=== PATIENT | female | born 1950 | race Caucasian/White ===

== ENCOUNTER → 2019-08-30 | Outpatient (CLI) | payer MEDICARE | END | disposition home or self-care (01) | LOC: LAB SHORT 17:20 → LAB EV 17:20 | DX: R10.33 Periumbilical pain (principal) | CPT/HCPCS: 87077; 87086; 87186 ==

== ENCOUNTER → 2019-09-19 | Outpatient (CLI) | payer MEDICARE ==
[2019-09-19 11:41] LABS: Source, Urine Clean Catch
[2019-09-19 15:51] LABS: Bilirubin, Urine Neg (Neg); Blood, Urine 1+ (Neg); Glucose Qualitative, Urine Neg (Neg); Ketones, Urine Neg (Neg); Leukocyte Esterase, Urine 1+ (Neg); Nitrite, Urine Pos (Neg); Protein, Urine 1+ (Neg); Specific Gravity, Urine 1.015 (1.003-1.022); Urobilinogen, Urine NORM (Normal)
[2019-09-19 15:56] LABS: Appearance, Urine Hazy (Clear); Calcium Oxalate Crystals Few /hpf; Color, Urine Yellow (P-Yellow)
[2019-09-19 15:57] LABS: Bacteria Many /hpf; Squamous Epithelial Cells Rare /hpf (Few)
== END | disposition home or self-care (01) ==
LOC: LAB SHORT 08:50 → LAB 08:50
PROVIDERS: Obstetrics & Gynecology
DX: N39.0 Urinary tract infection, site not specified (principal)
CPT/HCPCS: 81001; 87077; 87086; 87186

== ENCOUNTER → 2020-01-21 | Outpatient (CLI) | payer MEDICARE | LOC: LAB SHORT 11:00 → LAB EV 11:00 | DX: R30.9 Painful micturition, unspecified (principal) | CPT/HCPCS: 87077; 87086; 87186 ==

== ENCOUNTER 2020-09-09 11:54 | Day surgery (SDC) | payer MEDICARE, OTHER ==
[~2020-09-09] VITALS: Ht 170.2 cm; Wt 76.1 kg
[~2020-09-09 11:54] MED LIST: ATOR20 PO; CALCIUM PO; CYAN500 PO; Estrace Vagin42.5 GM VAG; FISH OIL PO; FOLI1 PO; LEVOTHYROXINE100 MC1 PO; LOPE2C PO; LOSARTAN-HCTZ1 EACH PO; MAGNESIUM PO; METO25ER PO; METTREX2.5 INJ; MULVITA PO; SUMA25 PO; VITAMIN D310 MC4 PO
--- NOTE | 2020-09-09 12:45 | NUR ---
Ambulatory in Day Surgery Surgical site prepped with 2% Chlorhexidine cloth wipe. History, Chart, Medications and Allergies reviewed before start of procedure.Lungs clear T/O to Auscultation. Patient confirms NPO status and agrees with scheduled surgery. Patient reports completing Chlorhexadine shower X2 prior to admission to hospital. ALL BELONGINGS PLACED UNDER THE BED.
--- NOTE | 2020-09-09 13:09 | NUR ---
PT TOOK PO MEDS AND CLEANED NARES AND DID MOUTHWASH WITHOUT DIFFICULTY.
--- NOTE | 2020-09-09 17:06 | NUR ---
REPORT RECIEVED FROM CLEMENTE Smith RN IN PACU. PT TO TRANSFER TO ROOM 216,S/P L TKA
--- NOTE | 2020-09-09 19:55 | NUR ---
PT ARRIVED ARRIVED AT 1708 AT ROOM 216. PODO FOR L TKA WITH SPINAL ANESTHESIA. PT IS ABLE TO WIGGLE TOES AND MILD MOV'T ON BLE. CAP REFILL WNL. PEDAL PULSES ARE STRONG. LUNG SOUNDS ARE CLEAR. VSS. DENIES PAIN AT BEGINNING OF SHIFT. REPORTS PAIN AT 1830. PAIN MANAGED WITH TORADOL, TYLENOL AND LY. POLAR PACK IN PLACED WITH SCD AND ANTIEMBO SOCK ON BLE. ABX AND TXA ADMINISTERED. SHE HAS 18G IV ON R AC. L HIP WITH AQUACEL DRESSING CDI. PT TOLERATING REG DIET FOR DINNER, DENIE NAUSEA AND VOMITING. PT ORIENT IN ROOM. CALL LIGHT WITHIN REACH.
--- NOTE | 2020-09-09 22:43 | NUR ---
SHIFT SUMMARY POD0 FOR L TKA. PT AOX4. VSS. PT WAS ABLE TO AMBULATE TO THE BATHROOM WITH 1 PERSON ASSIST. PT REPORTS PAIN, PAIN MANAGED WITH TORADOL, TYLENOL AND LY. TOLERATING REG DIET DENIES N/V. L KNEE WITH AQUACEL DRESSING REMAIN CDI. LLE IS WB NASIMA. POLAR PACK IN PLACED. VOIDING ADEQUATELY. CALL LIGHT WITHIN REACH.
[2020-09-10 05:55] LABS: BASOPHILS ABSOLUTE AUTO 0.01 K/mm3 (0.00-0.23); BASOPHILS PERCENT AUTO 0 % (0-2); EOSINOPHILS PERCENT AUTO 0 % (0-6); Hematocrit 35.3 % (33.0-51.0); IMMATURE GRAN ABSOLUTE AUTO 0.07 K/mm3 (0.00-0.10); IMMATURE GRAN PERCENT AUTO 1 % (0-1); LYMPHOCYTES ABSOLUTE AUTO 0.64 K/mm3 (0.84-5.20); LYMPHOCYTES PERCENT AUTO 5 % (21-46); MONOCYTES ABSOLUTE AUTO 0.47 K/mm3 (0.16-1.47); MONOCYTES PERCENT AUTO 4 % (4-13); Mean Corpuscular HGB 33.2 pg (26.0-34.0); Mean Corpuscular Volume 98 fL (80-100); NEUTROPHILS ABSOLUTE AUTO 10.77 K/mm3 (1.96-9.15); NEUTROPHILS PERCENT AUTO 90 % (41-73); Platelet Count 176 K/mm3 (150-400); RDW Coefficient Variation 13.3 % (11.7-14.2); RDW Standard Deviation 47.6 fL (35.1-46.3); Red Blood Cell Count 3.61 M/mm3 (3.80-5.20); White Blood Cell Count 11.96 K/mm3 (4.00-11.30)
[2020-09-10 06:26] LABS: Anion Gap 8 mmol/L (6-16); Blood Urea Nitrogen 18 mg/dL (8-24); CO2, Blood 27 mmol/L (21-32); Calcium, Blood 8.6 mg/dL (8.5-10.1); Chloride, Blood 104 mmol/L (98-108); Creatinine, Blood 0.86 mg/dL (0.40-1.00); Glomerular Filtration Rate >60 (60-); Glucose, Blood 135 mg/dL (70-99); Potassium, Blood 3.6 mmol/L (3.5-5.5); Sodium, Blood 139 mmol/L (136-145)
--- NOTE | 2020-09-10 06:45 | NUR ---
SHIFT SUMMARY: JADEN IS A&OX4. VSS, NO ACUTE EVENTS OVERNIGHT. SHE REPORTS DIFFICULTY WITH PAIN CONTROL THIS SHIFT, THE BEST PAIN RATING HAS BEEN 4/10 WITH THE GOAL OF 2/10. SHE HAS BEEN MEDICATED WITH APAP, TORADOL, OXYCODONE AND DILAUDID. PT ENCOURAGED TO AMBULATE. SHE IS A ONE PERSON ASSIST WITH THE FWW AND GAIT BELT TO THE BATHROOM, NO DIFFICULTIES VOIDING. DILSHAD HOSE, PAS AND POLAR PACK IN PLACE. SHE IS TOLERATING PO INTAKE WELL. AQUACELL TO LEFT KNEE C/D&I. SHE IS LYING IN BED WITH HER CALL LIGHT IN REACH. WILL REPORT TO DAY SHIFT RN.
[2020-09-10] MEDS ORDERED: OXAYDO5 M1 PO (11:08)
[2020-09-10] MEDS ORDERED: XARELTO10 MG PO (11:09)
--- NOTE | 2020-09-10 17:47 | NUR ---
SUMMARY PT PASSED THERAPY TODAY BUT PAIN HAS BEEN AN ISSUE. OBTAINED ORDER THIS AFTERNOON FOR PO DILAUDID; ADMINISTERED. PT NOW REPORTS PAIN AT 5/10. MEDICATED PER ORDERS T/O SHIFT TO TRY AND KEEP AT TOLERABLE LEVEL. PT ABLE TO TOLERATE AT 4-5/10. POLAR PACK HAS BEEN IN PLACE AND PT HAS BEEN SITTING IN RECLINER W/LEGS ELEVATED. CALL LIGHT IN REACH.
--- NOTE | 2020-09-11 05:47 | NUR ---
BOWEL CARE ASSISTED TO COMMODE D/T NEED FOR BM, UNABLE TO HAVE MOVEMENT. C/O N/V, 200ML BROWN FLUID WITH MASTICATED PARTICULATES AND AM MED WITH PRN PAIN MED NOTED IN BAG WHEN EMPTIED INTO COMMODE. 4MG ZOFRAN GIVEN IVP PER MD ORDERS. N/V RESOLVED. DULCOLAX SUPP GIVEN MT PER MD ORDERES. CURRENTLY WAITING ON RESULTS. SAFETY MEASURES IN PLACE. WILL CONTINUE TO MONITOR.
--- NOTE | 2020-09-11 06:06 | NUR ---
SHIFT SUMMARY SITTING ON THE SIDE OF THE BED WITH EYES OPEN, HAS RESTED WELL THROUGHOUT SHIFT. POD #2, AAO X4, ABLE TO FOLLOW DIRECTIONS. RESPIRATIONS EVEN AND UNLABORED ON ROOM AIR. LUNG SOUNDS CLEAR BILATERALLY. ABDOMEN SOFT AND NONDISTENDED. BOWEL SOUNDS NOTED IN ALL QUADS. LEFT KNEE WITH AQUACEL IN PLACE, AND SHADOWING NOTED, STATES IT HAPPENED AFTER WORKING WITH PT. PAIN BETTER MANAGED THIS SHIFT AFTER PLACING ICE BEHIND THE KNEE. SCD'S NOTED TO BLE. CONTINUE TO WAIT FOR RESULTS FROM DULCO;AX SUPPOSITORY. WILL REMEDICATE FOR VOMITED PILLS WHEN COMFORTABLE. SAFETY MEASURES IN PLACE. WILL CONTINUE TO MONITOR AND GIVE HAND OFF TO ONCOMING SHIFT USING SBAR DURING BEDSIDE REPORT.
--- NOTE | 2020-09-11 07:00 | NUR ---
REMEDICATED LYING IN SEMI FOWLERS WITH EYES OPEN. STATES SHE HAS NOT HAD RESILTS YET. REMEDICATED FOR PAIN WITH OXYCODONE AND GIVEN REPLACEMENT DOSE OF SYNTHROID. ICE REPLACED IN BUCKET AND BEHIND KNEE. DENEIS FURTHER NEEDS OR WANTS AT THIS TIME. SAFETY MEASURES IN PLACE. WILL CONTINUE TO MONITOR.
--- NOTE | 2020-09-11 10:05 | NUR ---
DISCHARGING PT'S PAIN IMPROVED/TOLERABLE TODAY. CLEARED BY THERAPY. PT EAGER TO GO HOME. SPOKE TO NICHELLE TYLER; OKAY TO DC. CHANGED DRESSING TO SURGICAL SITE DUE TO SANGUINEOUS DRAINAGE. PROVIDED AQUACEL DRESSINGS FOR PT TO TAKE HOME. DC'D IV, CATHETER INTACT. REVIEWED DC INSTRUCTIONS W/PT; VERBALIZED UNDERSTANDING. PT AWAITING RIDE.
--- NOTE | 2020-09-11 10:19 | NUR ---
PT LEFT UNIT IN WC HAD POSSESSIONS, DC INSTRUCTIONS, AQUACEL, AND POLAR PACK IN HAND TO RIDE AWAITING OUTSIDE.
== END 2020-09-11 10:19 | disposition home or self-care (01) ==
LOC: ORSCMMR 11:54 → ORD 11:54 → ORSCMMR 11:56 → ORD 13:30 → ORSCMMR 17:44 → SURS 17:44 → ORD 09-11 07:30 → ORSCMMR 09-11 10:19 → SURS 09-11 10:19
PROVIDERS: Orthopaedic Surgery
PROC: 8E0Y0CZ Robotic Assisted Procedure of Lower Extremity, Open Approach (ICD-10-PCS; principal; 2020-09-09 13:30)
PROC: 0SRD0JA Replacement of Left Knee Joint with Synthetic Substitute, Uncemented, Open Approach (ICD-10-PCS; principal; 2020-09-09 13:30)
DX: M17.12 Unilateral primary osteoarthritis, left knee (principal); I10 Essential (primary) hypertension; Z86.718 Personal history of other venous thrombosis and embolism; E78.5 Hyperlipidemia, unspecified; E03.9 Hypothyroidism, unspecified; Z79.899 Other long term (current) drug therapy
CPT/HCPCS: 27447; S2900; 36415; 73560-LT; 80048; 85025; 88300; 97110; 97116; 97161; 97530; A9270; C1776; J0171; J0690; J0735; J1100; J1170; J1885; J2250; J2370; J2405; J2704; J2765; J2795; J3010; J7120

== ENCOUNTER → 2020-11-06 | Outpatient (CLI) | payer MEDICARE, OTHER ==
[~2020-11-06] MED LIST changes: +OXAYDO5 M1 PO; +XARELTO10 MG PO
== END | disposition home or self-care (01) ==
LOC: LAB SHORT 12:01
DX: N39.0 Urinary tract infection, site not specified (principal)
CPT/HCPCS: 87077; 87086; 87186

== ENCOUNTER → 2021-03-03 | Outpatient (CLI) | payer MEDICARE, OTHER | END | disposition home or self-care (01) | LOC: LAB SHORT 11:53 → LAB 11:53 | DX: N39.0 Urinary tract infection, site not specified (principal) | CPT/HCPCS: 87086 ==

== ENCOUNTER 2021-03-15 02:40 | Day surgery (SDC) | payer MEDICARE, OTHER | END 2021-03-15 16:52 | disposition home or self-care (01) | LOC: ATC 02:40 | DX: M06.00 Rheumatoid arthritis without rheumatoid factor, unspecified site (principal); I10 Essential (primary) hypertension; Z86.718 Personal history of other venous thrombosis and embolism; Z88.5 Allergy status to narcotic agent; Z88.2 Allergy status to sulfonamides | CPT/HCPCS: 96365; 96366; A9270; J1745; J7050 ==

== ENCOUNTER 2021-03-29 01:28 | Day surgery (SDC) | payer MEDICARE, OTHER ==
[2021-03-29 09:40] LABS: BASOPHILS ABSOLUTE AUTO 0.05 K/mm3 (0.00-0.23); BASOPHILS PERCENT AUTO 1 % (0-2); EOSINOPHILS ABSOLUTE AUTO 0.28 K/mm3 (0.00-0.68); EOSINOPHILS PERCENT AUTO 8 % (0-6); Hematocrit 39.6 % (33.0-51.0); Hemoglobin 13.4 g/dL (11.5-16.0); IMMATURE GRAN ABSOLUTE AUTO 0.01 K/mm3 (0.00-0.10); IMMATURE GRAN PERCENT AUTO 0 % (0-1); LYMPHOCYTES ABSOLUTE AUTO 1.48 K/mm3 (0.84-5.20); LYMPHOCYTES PERCENT AUTO 41 % (21-46); MONOCYTES ABSOLUTE AUTO 0.24 K/mm3 (0.16-1.47); MONOCYTES PERCENT AUTO 7 % (4-13); Mean Corpuscular HGB 33.4 pg (26.0-34.0); Mean Corpuscular HGB Conc 33.8 g/dL (31.5-36.5); Mean Corpuscular Volume 99 fL (80-100); Mean Platelet Volume 10.8 fL (9.1-12.4); NEUTROPHILS ABSOLUTE AUTO 1.58 K/mm3 (1.96-9.15); NEUTROPHILS PERCENT AUTO 43 % (41-73); Platelet Count 185 K/mm3 (150-400); RDW Coefficient Variation 13.5 % (11.7-14.2); RDW Standard Deviation 48.7 fL (35.1-46.3); Red Blood Cell Count 4.01 M/mm3 (3.80-5.20); White Blood Cell Count 3.64 K/mm3 (4.00-11.30)
== END 2021-03-29 11:40 | disposition home or self-care (01) ==
LOC: ATC 01:28
PROVIDERS: Internal Medicine Rheumatology
DX: M06.00 Rheumatoid arthritis without rheumatoid factor, unspecified site (principal)
CPT/HCPCS: 84450; 85025; 85651; A9270; J1745; J7050

== ENCOUNTER 2021-05-24 04:31 | Day surgery (SDC) | payer MEDICARE, OTHER ==
--- NOTE | 2021-05-24 09:31 | NUR ---
LABS DRAWN FROM IV START PER PROTOCOL
[2021-05-24 09:37] LABS: BASOPHILS ABSOLUTE AUTO 0.05 K/mm3 (0.00-0.23); BASOPHILS PERCENT AUTO 1 % (0-2); EOSINOPHILS PERCENT AUTO 2 % (0-6); Hematocrit 39.4 % (33.0-51.0); Hemoglobin 13.5 g/dL (11.5-16.0); IMMATURE GRAN ABSOLUTE AUTO 0.01 K/mm3 (0.00-0.10); IMMATURE GRAN PERCENT AUTO 0 % (0-1); LYMPHOCYTES ABSOLUTE AUTO 1.93 K/mm3 (0.84-5.20); LYMPHOCYTES PERCENT AUTO 33 % (21-46); MONOCYTES ABSOLUTE AUTO 0.42 K/mm3 (0.16-1.47); MONOCYTES PERCENT AUTO 7 % (4-13); Mean Corpuscular HGB 33.3 pg (26.0-34.0); Mean Corpuscular HGB Conc 34.3 g/dL (31.5-36.5); Mean Corpuscular Volume 97 fL (80-100); Mean Platelet Volume 10.4 fL (9.1-12.4); NEUTROPHILS ABSOLUTE AUTO 3.38 K/mm3 (1.96-9.15); NEUTROPHILS PERCENT AUTO 57 % (41-73); Platelet Count 217 K/mm3 (150-400); RDW Coefficient Variation 13.5 % (11.7-14.2); RDW Standard Deviation 47.8 fL (35.1-46.3); Red Blood Cell Count 4.06 M/mm3 (3.80-5.20); White Blood Cell Count 5.89 K/mm3 (4.00-11.30)
== END 2021-05-24 12:02 | disposition home or self-care (01) ==
LOC: ATC 04:31
PROVIDERS: Internal Medicine Rheumatology
DX: M06.00 Rheumatoid arthritis without rheumatoid factor, unspecified site (principal); I10 Essential (primary) hypertension; Z88.5 Allergy status to narcotic agent; Z88.2 Allergy status to sulfonamides
CPT/HCPCS: 84450; 85025; 85651; 96413; 96415; A9270; J1745; J7050

== ENCOUNTER 2021-07-19 01:28 | Day surgery (SDC) | payer MEDICARE, OTHER ==
[2021-07-19 10:07] LABS: BASOPHILS ABSOLUTE AUTO 0.04 K/mm3 (0.00-0.23); BASOPHILS PERCENT AUTO 1 % (0-2); EOSINOPHILS ABSOLUTE AUTO 0.07 K/mm3 (0.00-0.68); EOSINOPHILS PERCENT AUTO 2 % (0-6); Hematocrit 42.2 % (33.0-51.0); Hemoglobin 14.5 g/dL (11.5-16.0); IMMATURE GRAN PERCENT AUTO 0 % (0-1); LYMPHOCYTES ABSOLUTE AUTO 1.48 K/mm3 (0.84-5.20); LYMPHOCYTES PERCENT AUTO 32 % (21-46); MONOCYTES ABSOLUTE AUTO 0.44 K/mm3 (0.16-1.47); MONOCYTES PERCENT AUTO 10 % (4-13); Mean Corpuscular HGB 33.2 pg (26.0-34.0); Mean Corpuscular HGB Conc 34.4 g/dL (31.5-36.5); Mean Corpuscular Volume 97 fL (80-100); Mean Platelet Volume 10.3 fL (9.1-12.4); NEUTROPHILS ABSOLUTE AUTO 2.58 K/mm3 (1.96-9.15); NEUTROPHILS PERCENT AUTO 56 % (41-73); Platelet Count 193 K/mm3 (150-400); RDW Coefficient Variation 13.5 % (11.7-14.2); Red Blood Cell Count 4.37 M/mm3 (3.80-5.20); White Blood Cell Count 4.61 K/mm3 (4.00-11.30)
== END 2021-07-19 12:31 | disposition home or self-care (01) ==
LOC: ATC 01:28
PROVIDERS: Internal Medicine Rheumatology
DX: M06.00 Rheumatoid arthritis without rheumatoid factor, unspecified site (principal); I10 Essential (primary) hypertension; Z79.899 Other long term (current) drug therapy; Z88.5 Allergy status to narcotic agent; Z88.2 Allergy status to sulfonamides
CPT/HCPCS: 84450; 85025; 85651; A9270; J7050; Q5103

== ENCOUNTER 2021-09-28 04:52 | Day surgery (SDC) | payer MEDICARE, OTHER ==
[2021-09-28 09:42] LABS: BASOPHILS ABSOLUTE AUTO 0.05 K/mm3 (0.00-0.23); BASOPHILS PERCENT AUTO 1 % (0-2); EOSINOPHILS PERCENT AUTO 2 % (0-6); Hematocrit 40.4 % (33.0-51.0); Hemoglobin 13.5 g/dL (11.5-16.0); IMMATURE GRAN ABSOLUTE AUTO 0.01 K/mm3 (0.00-0.10); IMMATURE GRAN PERCENT AUTO 0 % (0-1); LYMPHOCYTES ABSOLUTE AUTO 1.49 K/mm3 (0.84-5.20); LYMPHOCYTES PERCENT AUTO 29 % (21-46); MONOCYTES ABSOLUTE AUTO 0.44 K/mm3 (0.16-1.47); MONOCYTES PERCENT AUTO 9 % (4-13); Mean Corpuscular HGB 32.5 pg (26.0-34.0); Mean Corpuscular HGB Conc 33.4 g/dL (31.5-36.5); Mean Corpuscular Volume 97 fL (80-100); Mean Platelet Volume 10.4 fL (9.1-12.4); NEUTROPHILS ABSOLUTE AUTO 2.98 K/mm3 (1.96-9.15); NEUTROPHILS PERCENT AUTO 59 % (41-73); Platelet Count 245 K/mm3 (150-400); RDW Coefficient Variation 12.8 % (11.7-14.2); Red Blood Cell Count 4.16 M/mm3 (3.80-5.20); White Blood Cell Count 5.07 K/mm3 (4.00-11.30)
[2021-09-28] MEDS ORDERED: NITROGLYCERIN0.4 M3 SL (11:43)
--- NOTE | 2021-09-28 11:44 | NUR ---
LABS DRAWN WITH IV START.
[2022-02-08] MEDS ORDERED: BENICAR HCT 401 EACH PO (10:25)
== END 2021-09-28 11:55 | disposition home or self-care (01) ==
LOC: ATC 04:52
PROVIDERS: Internal Medicine Rheumatology
DX: M06.00 Rheumatoid arthritis without rheumatoid factor, unspecified site (principal); I10 Essential (primary) hypertension; Z88.5 Allergy status to narcotic agent; Z88.2 Allergy status to sulfonamides
CPT/HCPCS: 84450; 85025; 85651; 96413; 96415; A9270; J7050; Q5103

== ENCOUNTER → 2022-01-24 | Outpatient (CLI) | payer MEDICARE, OTHER ==
[~2022-01-24] MED LIST changes: +BENICAR HCT 401 EACH PO; +NITROGLYCERIN0.4 M3 SL
== END | disposition home or self-care (01) ==
LOC: PLD 15:39 → LAB SHORT 15:39
DX: L57.0 Actinic keratosis (principal)
CPT/HCPCS: 88305

== ENCOUNTER → 2022-06-22 | Outpatient (CLI) | payer MEDICARE, OTHER ==
[2022-06-22 14:43] LABS: BASOPHILS ABSOLUTE AUTO 0.03 K/mm3 (0.00-0.23); BASOPHILS PERCENT AUTO 1 % (0-2); EOSINOPHILS ABSOLUTE AUTO 0.08 K/mm3 (0.00-0.68); EOSINOPHILS PERCENT AUTO 2 % (0-6); Hematocrit 44.1 % (33.0-51.0); Hemoglobin 15.2 g/dL (11.5-16.0); IMMATURE GRAN ABSOLUTE AUTO 0.01 K/mm3 (0.00-0.10); IMMATURE GRAN PERCENT AUTO 0 % (0-1); LYMPHOCYTES ABSOLUTE AUTO 1.04 K/mm3 (0.84-5.20); LYMPHOCYTES PERCENT AUTO 24 % (21-46); MONOCYTES ABSOLUTE AUTO 0.32 K/mm3 (0.16-1.47); MONOCYTES PERCENT AUTO 7 % (4-13); Mean Corpuscular HGB 33.8 pg (26.0-34.0); Mean Corpuscular HGB Conc 34.5 g/dL (31.5-36.5); Mean Corpuscular Volume 98 fL (80-100); Mean Platelet Volume 11.2 fL (9.1-12.4); NEUTROPHILS ABSOLUTE AUTO 2.91 K/mm3 (1.96-9.15); NEUTROPHILS PERCENT AUTO 66 % (41-73); Platelet Count 216 K/mm3 (150-400); RDW Coefficient Variation 13.5 % (11.7-14.2); RDW Standard Deviation 48.5 fL (35.1-46.3); White Blood Cell Count 4.39 K/mm3 (4.00-11.30)
== END | disposition home or self-care (01) ==
LOC: LAB 12:49 → LAB SHORT 12:49
PROVIDERS: Internal Medicine Rheumatology
DX: M06.00 Rheumatoid arthritis without rheumatoid factor, unspecified site (principal)
CPT/HCPCS: 84450; 85025; 85651

== ENCOUNTER → 2022-08-24 | Outpatient (CLI) | payer MEDICARE, OTHER | LOC: LAB SHORT 15:42 → LAB 15:42 | DX: R30.0 Dysuria (principal) | CPT/HCPCS: 87077; 87086; 87186 ==

== ENCOUNTER → 2022-09-21 | Outpatient (CLI) | payer MEDICARE, OTHER ==
[2022-09-21 14:27] LABS: BASOPHILS ABSOLUTE AUTO 0.05 K/mm3 (0.00-0.23); BASOPHILS PERCENT AUTO 1 % (0-2); EOSINOPHILS PERCENT AUTO 2 % (0-6); Hematocrit 38.2 % (33.0-51.0); Hemoglobin 12.8 g/dL (11.5-16.0); IMMATURE GRAN ABSOLUTE AUTO 0.01 K/mm3 (0.00-0.10); IMMATURE GRAN PERCENT AUTO 0 % (0-1); LYMPHOCYTES ABSOLUTE AUTO 0.94 K/mm3 (0.84-5.20); LYMPHOCYTES PERCENT AUTO 20 % (21-46); MONOCYTES ABSOLUTE AUTO 0.39 K/mm3 (0.16-1.47); MONOCYTES PERCENT AUTO 8 % (4-13); Mean Corpuscular HGB 33.2 pg (26.0-34.0); Mean Corpuscular HGB Conc 33.5 g/dL (31.5-36.5); Mean Corpuscular Volume 99 fL (80-100); Mean Platelet Volume 11.3 fL (9.1-12.4); NEUTROPHILS ABSOLUTE AUTO 3.28 K/mm3 (1.96-9.15); NEUTROPHILS PERCENT AUTO 69 % (41-73); Platelet Count 189 K/mm3 (150-400); RDW Coefficient Variation 14.8 % (11.7-14.2); Red Blood Cell Count 3.85 M/mm3 (3.80-5.20); White Blood Cell Count 4.77 K/mm3 (4.00-11.30)
[2022-09-21 14:34] LABS: Albumin, Blood 3.9 g/dL (3.4-5.0); Albumin/Globulin Ratio 1.3 (0.8-1.8); Bilirubin, Total 0.6 mg/dL (0.1-1.0); Bun/Creatinine Ratio 27.2 (12.0-20.0); Calcium, Blood 9.5 mg/dL (8.5-10.1); Creatinine, Blood 0.92 mg/dL (0.40-1.00); Potassium, Blood 3.6 mmol/L (3.5-5.5); Total Protein, Blood 6.9 g/dL (6.4-8.2)
== END | disposition home or self-care (01) ==
LOC: LAB SHORT 10:16 → LAB 10:16
PROVIDERS: Internal Medicine Rheumatology
DX: M06.00 Rheumatoid arthritis without rheumatoid factor, unspecified site (principal)
CPT/HCPCS: 80053; 85025; 85651

== ENCOUNTER → 2022-10-28 | Outpatient (CLI) | payer MEDICARE, OTHER | END | disposition home or self-care (01) | LOC: LAB SHORT 09:46 → LAB 09:46 | DX: N39.0 Urinary tract infection, site not specified (principal) | CPT/HCPCS: 87077; 87086; 87186 ==

== ENCOUNTER 2023-02-10 08:25 | Day surgery (SDC) | payer MEDICARE, OTHER ==
[~2023-02-10] VITALS: Ht 170.2 cm; Wt 71.2 kg
[2023-02-10] VITALS (13 sets, daily range): BP systolic 102–166; BP diastolic 62–110
[2023-02-10] MEDS ORDERED: OLME20 PO (09:08)
--- NOTE | 2023-02-10 09:43 | NUR ---
02/10/23 0943 Emilio Fonseca HISTORY, CHART, MEDICATIONS AND ALLERGIES REVIEWED BEFORE START OF PROCEDURE. PATIENT CONFIRMS NPO STATUS AND AGREES WITH SCHEDULED PROCEDURE. 3-LEAD EKG REVIEWED WITH PHYSICIAN PRIOR TO START OF PROCEDURE. MONITOR INTACT WITH CONTINUOUS PULSE OXIMETRY,CAPNOGRAPHY, 3-LEAD EKG, INTERMITTENT BP. SUPPLEMENTAL O2 TO BE TITRATED THROUGHOUT PROCEDURE TO MAINTAIN O2 SATURATION ABOVE 90%. PATIENT DETERMINED TO BE ASA APPROPRIATE FOR PROPOFOL SEDATION PRIOR TO START OF PROCEDURE BY
--- NOTE | 2023-02-10 10:36 | NUR ---
PT UP IN BED TOLERING PO FLUIDS. VSS ON ROOM AIR. DENIES PAIN Patient up to Ambulate independently. Gait steady. UP TP RESTROOM Discharge instructions reviewed with patient. Patient verbalizes understanding. Copy given to patient to take home. Discharged via wheelchair to private car for ride home.
== END 2023-02-10 10:25 | disposition home or self-care (01) ==
LOC: ORSCMMR 08:25 → ORD 09:30 → ORSCMMR 10:25
PROVIDERS: Internal Medicine Gastroenterology
PROC: 0DB98ZX Excision of Duodenum, Via Natural or Artificial Opening Endoscopic, Diagnostic (ICD-10-PCS; principal; 2023-02-10 09:30)
PROC: 0DB58ZX Excision of Esophagus, Via Natural or Artificial Opening Endoscopic, Diagnostic (ICD-10-PCS; principal; 2023-02-10 09:30)
PROC: 0DB68ZX Excision of Stomach, Via Natural or Artificial Opening Endoscopic, Diagnostic (ICD-10-PCS; principal; 2023-02-10 09:30)
DX: R10.13 Epigastric pain (principal); K52.832 Lymphocytic colitis; K20.90 Esophagitis, unspecified without bleeding; Z80.0 Family history of malignant neoplasm of digestive organs; E78.5 Hyperlipidemia, unspecified; E03.9 Hypothyroidism, unspecified; I10 Essential (primary) hypertension; G47.33 Obstructive sleep apnea (adult) (pediatric); Z86.718 Personal history of other venous thrombosis and embolism; M06.9 Rheumatoid arthritis, unspecified; E78.00 Pure hypercholesterolemia, unspecified; Z79.899 Other long term (current) drug therapy
CPT/HCPCS: 88305; 88342; J2704; J7120

== ENCOUNTER → 2023-04-12 | Outpatient (CLI) | payer MEDICARE, OTHER ==
[~2023-04-12] MED LIST changes: +OLME20 PO
[2023-04-12 14:34] LABS: BASOPHILS ABSOLUTE AUTO 0.05 K/mm3 (0.00-0.23); BASOPHILS PERCENT AUTO 1 % (0-2); EOSINOPHILS ABSOLUTE AUTO 0.04 K/mm3 (0.00-0.68); EOSINOPHILS PERCENT AUTO 1 % (0-6); Hemoglobin 14.5 g/dL (11.5-16.0); IMMATURE GRAN ABSOLUTE AUTO 0.01 K/mm3 (0.00-0.10); IMMATURE GRAN PERCENT AUTO 0 % (0-1); LYMPHOCYTES ABSOLUTE AUTO 1.35 K/mm3 (0.84-5.20); LYMPHOCYTES PERCENT AUTO 26 % (21-46); MONOCYTES ABSOLUTE AUTO 0.44 K/mm3 (0.16-1.47); MONOCYTES PERCENT AUTO 9 % (4-13); Mean Corpuscular HGB 33.6 pg (26.0-34.0); Mean Corpuscular HGB Conc 33.7 g/dL (31.5-36.5); Mean Corpuscular Volume 100 fL (80-100); Mean Platelet Volume 10.9 fL (9.1-12.4); NEUTROPHILS ABSOLUTE AUTO 3.25 K/mm3 (1.96-9.15); NEUTROPHILS PERCENT AUTO 63 % (41-73); Platelet Count 219 K/mm3 (150-400); RDW Coefficient Variation 13.4 % (11.7-14.2); RDW Standard Deviation 49.1 fL (35.1-46.3); Red Blood Cell Count 4.31 M/mm3 (3.80-5.20); White Blood Cell Count 5.14 K/mm3 (4.00-11.30)
[2023-04-12 15:15] LABS: Albumin, Blood 4.5 g/dL (3.4-5.0); Albumin/Globulin Ratio 1.4 (0.8-1.8); Bilirubin, Total 0.6 mg/dL (0.1-1.0); Bun/Creatinine Ratio 23.5 (12.0-20.0); Calcium, Blood 9.8 mg/dL (8.5-10.1); Creatinine, Blood 1.02 mg/dL (0.40-1.00); Globulin, Blood 3.2 g/dL (2.2-4.0); Total Protein, Blood 7.7 g/dL (6.4-8.2)
== END ==
LOC: LAB SHORT 12:47 → LAB 12:47
PROVIDERS: Internal Medicine Rheumatology
DX: M06.00 Rheumatoid arthritis without rheumatoid factor, unspecified site (principal)
CPT/HCPCS: 80053; 85025; 85651

== ENCOUNTER 2023-05-22 08:36 | Day surgery (SDC) | payer MEDICARE, OTHER ==
[2023-05-22] VITALS (12 sets, daily range): BP systolic 87–131; BP diastolic 61–97
[~2023-05-22] VITALS: Ht 170.2 cm; Wt 70.4 kg
[~2023-05-22 08:36] MED LIST changes: +DOXE10 PO; +HYDSUL200 PO; +LUTEIN20 MG PO; +Magnesium500 M1 PO; +OMEP20ER PO; +ORTIKOS9 M1 PO; +PROBIOTIC1 EA14 PO
--- NOTE | 2023-05-22 09:28 | NUR ---
PATIENT GAVE HER GLASSES TO HER FOR SAFE KEEPING DURING SURGERY.
--- NOTE | 2023-05-22 09:35 | NUR ---
PATIENT CHANGED PLAN FOR GLASSES. GLASSES BROUGHT TO PACU FOR SAFE KEEPING DURING SURGERY.
--- NOTE | 2023-05-22 10:27 | NUR ---
05/22/23 [place] SPINAL COMPLETED UPON ENTRY TO OR. HOWEVER, LMA WAS PLACED BY DR FUNES AFTER INCISION.
--- NOTE | 2023-05-22 12:00 | NUR ---
ARRIVAL TO SURGICAL UNIT ASSESSMENT CHARTED. DENIES N/V OR PAIN. SNACKS & FLUIDS GIVEN. UNABLE TO MOVE BLE R/T SPINAL. PT NOTED TO HAVE VISABLE SHAKES; PT EDUCATED & WARM BLANKETS GIVEN.
--- NOTE | 2023-05-22 12:33 | NUR ---
SHAKING HAS RESOLVED. EATING & DRINKING. DENIES NEEDS.
--- NOTE | 2023-05-22 17:59 | NUR ---
SHIFT SUMMARY PT HAS DONE WELL POST OP, BUT IS STRUGGLING w/ PAIN. HAS BEEN UP & WORKED w/ THERAPY. UP IN CHAIR FOR DINNER. EATING & DRINKING WELL, BUT HASN'T VOIDED POST OP. BLADDER SCAN WNL. PT REPORTS SHE WILL ATTEMPT TO VOID AFTER ANTIBIOTIC IS FINISHED INFUSING.
[2023-05-23 00:04] VITALS: BP 119/62
[2023-05-23 02:39] VITALS: BP 134/73
--- NOTE | 2023-05-23 07:15 | NUR ---
POD 1 S/P RIGHT [place]. PT VSS T/O NIGHT. INCISION CDI, W/MILD SWELLING NOTED AT HIP. PTP DENIED N/T, PULSES AND CAP REFILL WNL. PAIN MGD W/2 OXYCODONE AND SCHEDULED TYLENOL/TORADOL, IV DILAUDID GIVEN X1 FOR BREAKTHROUGH PAIN. PT NASIMA PO, DENIED N/V, IS VOIDING URINE W/O DIFFICULTY. PLAN TO MOBILIZE W/PT AND DC HOME WHEN CLEARED.
[2023-05-23 07:33] VITALS: BP 111/70
[2023-05-23 07:42] LABS: BASOPHILS ABSOLUTE AUTO 0.01 K/mm3 (0.00-0.23); BASOPHILS PERCENT AUTO 0 % (0-2); EOSINOPHILS ABSOLUTE AUTO 0.02 K/mm3 (0.00-0.68); EOSINOPHILS PERCENT AUTO 0 % (0-6); Hematocrit 32.9 % (33.0-51.0); Hemoglobin 11.1 g/dL (11.5-16.0); IMMATURE GRAN ABSOLUTE AUTO 0.02 K/mm3 (0.00-0.10); IMMATURE GRAN PERCENT AUTO 0 % (0-1); LYMPHOCYTES ABSOLUTE AUTO 1.05 K/mm3 (0.84-5.20); LYMPHOCYTES PERCENT AUTO 11 % (21-46); MONOCYTES ABSOLUTE AUTO 0.75 K/mm3 (0.16-1.47); MONOCYTES PERCENT AUTO 8 % (4-13); Mean Corpuscular HGB 33.1 pg (26.0-34.0); Mean Corpuscular HGB Conc 33.7 g/dL (31.5-36.5); Mean Corpuscular Volume 98 fL (80-100); Mean Platelet Volume 10.6 fL (9.1-12.4); NEUTROPHILS ABSOLUTE AUTO 7.81 K/mm3 (1.96-9.15); NEUTROPHILS PERCENT AUTO 81 % (41-73); Platelet Count 165 K/mm3 (150-400); RDW Coefficient Variation 12.6 % (11.7-14.2); RDW Standard Deviation 45.2 fL (35.1-46.3); Red Blood Cell Count 3.35 M/mm3 (3.80-5.20); White Blood Cell Count 9.66 K/mm3 (4.00-11.30)
[2023-05-23 08:13] LABS: Bun/Creatinine Ratio 22.3 (12.0-20.0); Calcium, Blood 8.6 mg/dL (8.5-10.1); Creatinine, Blood 1.12 mg/dL (0.40-1.00); Magnesium, Blood 1.9 mg/dL (1.6-2.4); Potassium, Blood 3.4 mmol/L (3.5-5.5)
[2023-05-23] MEDS ORDERED: OXYC5 PO (09:08)
[2023-05-23] MEDS ORDERED: ASPI81CH PO (09:08)
[2023-05-23] MEDS ORDERED: ACET500 PO (09:08)
--- NOTE | 2023-05-23 10:57 | NUR ---
DISCHARGE PT HAS CLEARED THERAPY. PAIN REASONABLY CONTROLLED. EATING, DRINKING, & VOIDING WELL. POLAR PACK SENT w/ PT. ESCORTED OUT VIA W/C.
== END 2023-05-23 10:57 | disposition home or self-care (01) ==
LOC: ORSCMMR 08:36 → ORD 11:00 → ORSCMMR 11:00 → SURS 11:47 → ORSCMMR 05-23 10:57
PROVIDERS: Orthopaedic Surgery
PROC: 0SR90JA Replacement of Right Hip Joint with Synthetic Substitute, Uncemented, Open Approach (ICD-10-PCS; principal; 2023-05-22 11:00)
DX: M16.11 Unilateral primary osteoarthritis, right hip (principal); I10 Essential (primary) hypertension; E03.9 Hypothyroidism, unspecified; Z86.718 Personal history of other venous thrombosis and embolism; E78.00 Pure hypercholesterolemia, unspecified; Z79.899 Other long term (current) drug therapy
CPT/HCPCS: 36415; 72170; 80048; 83735; 85025; 97110; 97116; 97162; A9270; C1776; J0171; J0690; J0735; J1100; J1170; J1885; J2250; J2405; J2704; J2795; J3010; J7120

== ENCOUNTER → 2023-07-12 | Outpatient (CLI) | payer MEDICARE, OTHER ==
[~2023-07-12] MED LIST changes: +ACET500 PO; +ASPI81CH PO; +OXYC5 PO
[2023-07-12 16:00] LABS: BASOPHILS ABSOLUTE AUTO 0.06 K/mm3 (0.00-0.23); BASOPHILS PERCENT AUTO 1 % (0-2); EOSINOPHILS PERCENT AUTO 2 % (0-6); Hematocrit 38.4 % (33.0-51.0); Hemoglobin 12.9 g/dL (11.5-16.0); IMMATURE GRAN ABSOLUTE AUTO 0.01 K/mm3 (0.00-0.10); IMMATURE GRAN PERCENT AUTO 0 % (0-1); LYMPHOCYTES ABSOLUTE AUTO 1.28 K/mm3 (0.84-5.20); LYMPHOCYTES PERCENT AUTO 25 % (21-46); MONOCYTES ABSOLUTE AUTO 0.37 K/mm3 (0.16-1.47); MONOCYTES PERCENT AUTO 7 % (4-13); Mean Corpuscular HGB 33.1 pg (26.0-34.0); Mean Corpuscular HGB Conc 33.6 g/dL (31.5-36.5); Mean Corpuscular Volume 99 fL (80-100); Mean Platelet Volume 10.6 fL (9.1-12.4); NEUTROPHILS ABSOLUTE AUTO 3.41 K/mm3 (1.96-9.15); NEUTROPHILS PERCENT AUTO 65 % (41-73); Platelet Count 252 K/mm3 (150-400); RDW Coefficient Variation 13.6 % (11.7-14.2); RDW Standard Deviation 48.5 fL (35.1-46.3); White Blood Cell Count 5.23 K/mm3 (4.00-11.30)
[2023-07-12 18:30] LABS: Albumin, Blood 4.4 g/dL (3.4-5.0); Albumin/Globulin Ratio 1.6 (0.8-1.8); Bilirubin, Total 0.6 mg/dL (0.1-1.0); Calcium, Blood 10.1 mg/dL (8.5-10.1); Creatinine, Blood 0.96 mg/dL (0.40-1.00); Globulin, Blood 2.8 g/dL (2.2-4.0); Potassium, Blood 3.8 mmol/L (3.5-5.5); Total Protein, Blood 7.2 g/dL (6.4-8.2)
== END ==
LOC: LAB SHORT 14:57 → LAB 14:57
PROVIDERS: Internal Medicine Rheumatology
DX: M06.00 Rheumatoid arthritis without rheumatoid factor, unspecified site (principal)
CPT/HCPCS: 80053; 85025; 85651

== ENCOUNTER → 2023-08-11 | Outpatient (CLI) | payer MEDICARE, OTHER | END | disposition home or self-care (01) | LOC: LAB 17:09 → LAB SHORT 17:09 | DX: N39.0 Urinary tract infection, site not specified (principal) | CPT/HCPCS: 87086 ==

== ENCOUNTER → 2023-09-07 | Outpatient (CLI) | payer MEDICARE, OTHER | LOC: LAB SHORT 11:30 → LAB 11:30 | DX: N39.0 Urinary tract infection, site not specified (principal); R30.0 Dysuria | CPT/HCPCS: 87086 ==

== ENCOUNTER → 2023-12-28 | Outpatient (CLI) | payer MEDICARE, OTHER ==
[2023-12-28 10:28] LABS: BASOPHILS ABSOLUTE AUTO 0.04 K/mm3 (0.00-0.23); BASOPHILS PERCENT AUTO 1 % (0-2); EOSINOPHILS ABSOLUTE AUTO 0.08 K/mm3 (0.00-0.68); EOSINOPHILS PERCENT AUTO 2 % (0-6); IMMATURE GRAN ABSOLUTE AUTO 0.01 K/mm3 (0.00-0.10); IMMATURE GRAN PERCENT AUTO 0 % (0-1); LYMPHOCYTES ABSOLUTE AUTO 1.28 K/mm3 (0.84-5.20); LYMPHOCYTES PERCENT AUTO 28 % (21-46); MONOCYTES ABSOLUTE AUTO 0.43 K/mm3 (0.16-1.47); MONOCYTES PERCENT AUTO 10 % (4-13); Mean Corpuscular HGB 33.2 pg (26.0-34.0); Mean Corpuscular HGB Conc 34.2 g/dL (31.5-36.5); Mean Corpuscular Volume 97 fL (80-100); Mean Platelet Volume 10.5 fL (9.1-12.4); NEUTROPHILS PERCENT AUTO 59 % (41-73); Platelet Count 175 K/mm3 (150-400); RDW Coefficient Variation 13.9 % (11.7-14.2); RDW Standard Deviation 49.4 fL (35.1-46.3); Red Blood Cell Count 3.92 M/mm3 (3.80-5.20); White Blood Cell Count 4.54 K/mm3 (4.00-11.30)
[2023-12-28 11:30] LABS: Anion Gap 13 mmol/L (6-16); Blood Urea Nitrogen 26 mg/dL (8-24); Bun/Creatinine Ratio 23.6 (12.0-20.0); CHOL/HDL RATIO 1.8; CO2, Blood 29 mmol/L (21-32); Calcium, Blood 9.5 mg/dL (8.5-10.1); Chloride, Blood 102 mmol/L (98-108); Cholesterol 154 mg/dL (50-200); Glomerular Filtration Rate 52 (60-); Glucose, Blood 95 mg/dL (70-99); HDL Cholesterol 84 mg/dL (>39); LDL/HDL RATIO 0.6; Low Density Lipoprotein Chol 46 mg/dL (<110); Potassium, Blood 3.8 mmol/L (3.5-5.5); Sodium, Blood 140 mmol/L (136-145); Thyroid Stimulating Hormone 1.808 uIU/mL (0.360-4.800); Triglycerides 119 mg/dL (30-160); Very Low Density Lipoprot Chol 23 mg/dL (6-32)
== END ==
LOC: LAB SHORT 10:04 → LAB 10:04
PROVIDERS: Family Medicine
DX: E03.8 Other specified hypothyroidism (principal); E78.2 Mixed hyperlipidemia; N18.31 Chronic kidney disease, stage 3a; R73.03 Prediabetes
CPT/HCPCS: 36415; 80048; 80061; 83036; 84443; 85025

== ENCOUNTER → 2024-01-11 | Outpatient (CLI) | payer MEDICARE, OTHER ==
[2024-01-11 11:34] LABS: BASOPHILS ABSOLUTE AUTO 0.04 K/mm3 (0.00-0.23); BASOPHILS PERCENT AUTO 1 % (0-2); EOSINOPHILS ABSOLUTE AUTO 0.09 K/mm3 (0.00-0.68); EOSINOPHILS PERCENT AUTO 2 % (0-6); Hematocrit 40.5 % (33.0-51.0); Hemoglobin 13.6 g/dL (11.5-16.0); IMMATURE GRAN ABSOLUTE AUTO 0.01 K/mm3 (0.00-0.10); IMMATURE GRAN PERCENT AUTO 0 % (0-1); LYMPHOCYTES ABSOLUTE AUTO 1.16 K/mm3 (0.84-5.20); LYMPHOCYTES PERCENT AUTO 25 % (21-46); MONOCYTES ABSOLUTE AUTO 0.38 K/mm3 (0.16-1.47); MONOCYTES PERCENT AUTO 8 % (4-13); Mean Corpuscular HGB 33.1 pg (26.0-34.0); Mean Corpuscular HGB Conc 33.6 g/dL (31.5-36.5); Mean Corpuscular Volume 99 fL (80-100); Mean Platelet Volume 10.5 fL (9.1-12.4); NEUTROPHILS ABSOLUTE AUTO 2.92 K/mm3 (1.96-9.15); NEUTROPHILS PERCENT AUTO 63 % (41-73); Platelet Count 203 K/mm3 (150-400); RDW Coefficient Variation 13.7 % (11.7-14.2); RDW Standard Deviation 49.7 fL (35.1-46.3); Red Blood Cell Count 4.11 M/mm3 (3.80-5.20)
[2024-01-11 11:40] LABS: Albumin, Blood 4.4 g/dL (3.4-5.0); Albumin/Globulin Ratio 1.6 (0.8-1.8); Bilirubin, Total 0.5 mg/dL (0.1-1.0); Bun/Creatinine Ratio 27.9 (12.0-20.0); Calcium, Blood 10.1 mg/dL (8.5-10.1); Creatinine, Blood 1.04 mg/dL (0.40-1.00); Globulin, Blood 2.8 g/dL (2.2-4.0); Potassium, Blood 3.7 mmol/L (3.5-5.5); Total Protein, Blood 7.2 g/dL (6.4-8.2)
== END | disposition home or self-care (01) ==
LOC: LAB 10:14 → LAB SHORT 10:14
PROVIDERS: Internal Medicine Rheumatology
DX: M06.00 Rheumatoid arthritis without rheumatoid factor, unspecified site (principal)
CPT/HCPCS: 80053; 85025; 85651

== ENCOUNTER → 2024-02-05 | Outpatient (CLI) | payer MEDICARE, OTHER ==
[2024-02-07 15:32] LABS: PANCREATIC ELASTASE,FECAL 281 ug/g (>=100)
[2024-02-11 14:53] LABS: CALPROTECTIN,FECAL <5 ug/g (<=49)
== END ==
LOC: LAB SHORT 15:11 → LAB 15:11
PROVIDERS: Physician Assistant
DX: R19.7 Diarrhea, unspecified (principal)
CPT/HCPCS: 82653; 83993

== ENCOUNTER → 2024-04-03 | Outpatient (CLI) | payer MEDICARE, OTHER ==
[2024-04-03 17:27] LABS: BASOPHILS ABSOLUTE AUTO 0.05 K/mm3 (0.00-0.23); BASOPHILS PERCENT AUTO 1 % (0-2); EOSINOPHILS PERCENT AUTO 2 % (0-6); Hematocrit 37.1 % (33.0-51.0); Hemoglobin 12.6 g/dL (11.5-16.0); IMMATURE GRAN ABSOLUTE AUTO 0.01 K/mm3 (0.00-0.10); IMMATURE GRAN PERCENT AUTO 0 % (0-1); LYMPHOCYTES ABSOLUTE AUTO 1.42 K/mm3 (0.84-5.20); LYMPHOCYTES PERCENT AUTO 27 % (21-46); MONOCYTES ABSOLUTE AUTO 0.42 K/mm3 (0.16-1.47); MONOCYTES PERCENT AUTO 8 % (4-13); Mean Corpuscular HGB 33.8 pg (26.0-34.0); Mean Corpuscular Volume 100 fL (80-100); Mean Platelet Volume 10.9 fL (9.1-12.4); NEUTROPHILS ABSOLUTE AUTO 3.29 K/mm3 (1.96-9.15); NEUTROPHILS PERCENT AUTO 62 % (41-73); Platelet Count 223 K/mm3 (150-400); RDW Coefficient Variation 13.5 % (11.7-14.2); Red Blood Cell Count 3.73 M/mm3 (3.80-5.20); White Blood Cell Count 5.29 K/mm3 (4.00-11.30)
[2024-04-03 19:27] LABS: Albumin, Blood 4.3 g/dL (3.4-5.0); Albumin/Globulin Ratio 1.9 (0.8-1.8); Bilirubin, Total 0.6 mg/dL (0.1-1.0); Bun/Creatinine Ratio 22.5 (12.0-20.0); Calcium, Blood 9.3 mg/dL (8.5-10.1); Creatinine, Blood 1.29 mg/dL (0.40-1.00); Globulin, Blood 2.3 g/dL (2.2-4.0); Potassium, Blood 3.8 mmol/L (3.5-5.5); Total Protein, Blood 6.6 g/dL (6.4-8.2)
== END ==
LOC: LAB 16:35 → LAB SHORT 16:35
PROVIDERS: Internal Medicine Rheumatology
DX: M06.00 Rheumatoid arthritis without rheumatoid factor, unspecified site (principal)
CPT/HCPCS: 80053; 85025; 85651

== ENCOUNTER → 2024-07-03 | Outpatient (CLI) | payer MEDICARE, OTHER ==
[2024-07-03 19:00] LABS: BASOPHILS ABSOLUTE AUTO 0.03 K/mm3 (0.00-0.23); BASOPHILS PERCENT AUTO 1 % (0-2); EOSINOPHILS ABSOLUTE AUTO 0.09 K/mm3 (0.00-0.68); EOSINOPHILS PERCENT AUTO 2 % (0-6); Hematocrit 38.8 % (33.0-51.0); Hemoglobin 13.2 g/dL (11.5-16.0); IMMATURE GRAN ABSOLUTE AUTO 0.01 K/mm3 (0.00-0.10); IMMATURE GRAN PERCENT AUTO 0 % (0-1); LYMPHOCYTES ABSOLUTE AUTO 1.45 K/mm3 (0.84-5.20); LYMPHOCYTES PERCENT AUTO 27 % (21-46); MONOCYTES ABSOLUTE AUTO 0.37 K/mm3 (0.16-1.47); MONOCYTES PERCENT AUTO 7 % (4-13); Mean Corpuscular HGB 33.3 pg (26.0-34.0); Mean Corpuscular Volume 98 fL (80-100); Mean Platelet Volume 10.7 fL (9.1-12.4); NEUTROPHILS ABSOLUTE AUTO 3.47 K/mm3 (1.96-9.15); NEUTROPHILS PERCENT AUTO 64 % (41-73); Platelet Count 245 K/mm3 (150-400); RDW Coefficient Variation 12.7 % (11.7-14.2); RDW Standard Deviation 45.2 fL (35.1-46.3); Red Blood Cell Count 3.96 M/mm3 (3.80-5.20); White Blood Cell Count 5.42 K/mm3 (4.00-11.30)
[2024-07-03 19:51] LABS: Albumin, Blood 4.3 g/dL (3.4-5.0); Albumin/Globulin Ratio 1.4 (0.8-1.8); Bilirubin, Total 0.4 mg/dL (0.1-1.0); Bun/Creatinine Ratio 20.8 (12.0-20.0); Calcium, Blood 10.3 mg/dL (8.5-10.1); Creatinine, Blood 1.01 mg/dL (0.40-1.00); Potassium, Blood 4.1 mmol/L (3.5-5.5); Total Protein, Blood 7.3 g/dL (6.4-8.2)
== END | disposition home or self-care (01) ==
LOC: LAB 16:48 → LAB SHORT 16:48
PROVIDERS: Internal Medicine Rheumatology
DX: M06.00 Rheumatoid arthritis without rheumatoid factor, unspecified site (principal)
CPT/HCPCS: 80053; 85025; 85651

== ENCOUNTER 2024-08-07 15:27 | Inpatient (IN) | payer MEDICARE, OTHER ==
[~2024-08-07] VITALS: Ht 170.2 cm; Wt 71.7 kg
[~2024-08-07 15:27] MED LIST changes: -C COMPLEX1000 M1 PO; -CIPR500 PO; -Methocarbamol500 MG PO; -ONDA4 PO
[2024-08-07] MEDS ORDERED: NS 1,000 ML IV SCH (15:50)
[2024-08-07 18:30] LABS: Source, Urine Clean Catch
[2024-08-07 18:46] LABS: Bun/Creatinine Ratio 20.2 (12.0-20.0); Calcium, Blood 9.1 mg/dL (8.5-10.1); Creatinine, Blood 1.63 mg/dL (0.40-1.00); Potassium, Blood 3.6 mmol/L (3.5-5.5)
[2024-08-07 19:04] LABS: Appearance, Urine Cloudy (Clear); Bilirubin, Urine Neg (Neg); Blood, Urine 2+ (Neg); Color, Urine Yellow (P-Yellow); Glucose Qualitative, Urine Neg (Neg); Ketones, Urine 1+ (Neg); Leukocyte Esterase, Urine 3+ (Neg); Nitrite, Urine Neg (Neg); Protein, Urine 3+ (Neg); Urobilinogen, Urine NORM (Normal)
[2024-08-07 19:44] LABS: Bacteria Many /hpf; Mucus Light (0-Heavy); Squamous Epithelial Cells Rare /hpf (Few); Transitional Epithelial Cells Rare /hpf (0-Rare); White Blood Cells, Urine TNTC /hpf (0-5)
[2024-08-07] MEDS ORDERED: CefTRIAXone Sodium 1,000 MG in NS 100 ML IV ONE (19:50)
[2024-08-07] MEDS ORDERED: FentaNYL Citrate 50 MCG/ML 2 ML Injection IV PRN (23:10)
[2024-08-07] MEDS ORDERED: NS 1,000 ML IV ONE (23:10)
[2024-08-07] MEDS ORDERED: Ondansetron HCl 2 MG / ML 2ML Vial IV PRN (23:10)
[2024-08-07] MEDS ORDERED: FLU VACC TS2024-25(6MOS UP)/PF 45 MCG/0.5 ML SYRINGE IM ONE (23:15)
[2024-08-08] VITALS (7 sets, daily range): BP systolic 125–138; BP diastolic 62–68
[2024-08-08] MEDS ORDERED: NS 1,000 ML IV ONE (01:20)
--- NOTE | 2024-08-08 01:40 | NUR ---
ADMIT NOTE HANDOFF GIVEN TO BREAK NURSE FROM ER. THEN BREAK RN GAVE HANDOFF TO ME. PT ARRIVED TO FLOOR VIA GURNEY. PT ORIENTED TO UNIT. CALL BUTTON WITHIN REACH. PT IS NPO. IV FLUIDS INFUSING
[2024-08-08] MEDS ORDERED: C COMPLEX1000 M1 PO (02:34)
--- NOTE | 2024-08-08 04:22 | NUR ---
SHIFT SUMMARY ADMITTED FOR KIDNEY STONE/ABD PAIN. FULL CODE. IR CONSULT IS RENU, POSSIBLE NEED FOR A NEPHROSTOMY TUBE (RIGHT). TELEMETRY: NSR @ 81 BPM. IV PAIN MEDICATION GIVEN THIS SHIFT. SHE HAS BEEN NPO SINCE SHE WAS ADMITTED. IV FLUIDS INFUSING ORDERED. ON RA. A&O X4. STANDBY ASSIST - BRP.
[2024-08-08 05:56] LABS: BASOPHILS ABSOLUTE AUTO 0.06 K/mm3 (0.00-0.23); BASOPHILS PERCENT AUTO 1 % (0-2); EOSINOPHILS PERCENT AUTO 1 % (0-6); Hematocrit 33.3 % (33.0-51.0); Hemoglobin 11.4 g/dL (11.5-16.0); IMMATURE GRAN ABSOLUTE AUTO 0.05 K/mm3 (0.00-0.10); IMMATURE GRAN PERCENT AUTO 1 % (0-1); LYMPHOCYTES ABSOLUTE AUTO 1.77 K/mm3 (0.84-5.20); LYMPHOCYTES PERCENT AUTO 23 % (21-46); MONOCYTES ABSOLUTE AUTO 0.75 K/mm3 (0.16-1.47); MONOCYTES PERCENT AUTO 10 % (4-13); Mean Corpuscular HGB 32.6 pg (26.0-34.0); Mean Corpuscular HGB Conc 34.2 g/dL (31.5-36.5); Mean Corpuscular Volume 95 fL (80-100); NEUTROPHILS ABSOLUTE AUTO 5.13 K/mm3 (1.96-9.15); NEUTROPHILS PERCENT AUTO 65 % (41-73); Platelet Count 281 K/mm3 (150-400); RDW Coefficient Variation 13.2 % (11.7-14.2); RDW Standard Deviation 45.3 fL (35.1-46.3); White Blood Cell Count 7.86 K/mm3 (4.00-11.30)
[2024-08-08] MEDS ORDERED: Acetaminophen 325 MG TABLET PO PRN (06:10)
[2024-08-08] MEDS ORDERED: Estradiol Vag Cream 0.1 MG/G 42.5 GM Tube VAG SCH (06:10)
[2024-08-08] MEDS ORDERED: Levothyroxine Sodium 0.1 MG Tab PO SCH (06:21)
[2024-08-08 06:23] LABS: Albumin, Blood 3.2 g/dL (3.4-5.0); Albumin/Globulin Ratio 0.9 (0.8-1.8); Bilirubin, Total 0.5 mg/dL (0.1-1.0); Bun/Creatinine Ratio 22.8 (12.0-20.0); Calcium, Blood 8.9 mg/dL (8.5-10.1); Creatinine, Blood 1.14 mg/dL (0.40-1.00); Globulin, Blood 3.5 g/dL (2.2-4.0); Potassium, Blood 3.5 mmol/L (3.5-5.5); Total Protein, Blood 6.7 g/dL (6.4-8.2)
[2024-08-08] MEDS ORDERED: Metoprolol Succinate 25 MG TABCR PO SCH (09:00)
[2024-08-08] MEDS ORDERED: Hydroxychloroquine Sulfate 200 MG Tab PO SCH (09:00)
[2024-08-08] MEDS ORDERED: NS 250 ML IV ONE (10:36)
[2024-08-08] MEDS ORDERED: FentaNYL Citrate 50 MCG/ML 2 ML Injection ONE ×3 (10:39→11:54)
[2024-08-08] MEDS ORDERED: Midazolam HCl 1MG / ML 2ML Vial ONE ×3 (10:39→11:54)
[2024-08-08] MEDS ORDERED: NS 500 ML IV ONE (10:39)
[2024-08-08] MEDS ORDERED: Acetaminophen 500 MG Tab PO PRN (11:55)
[2024-08-08] MEDS ORDERED: FentaNYL Citrate 50 MCG/ML 2 ML Injection IV PRN ×2 (12:00→13:20)
--- NOTE | 2024-08-08 13:06 | NUR ---
PATIENT ARRIVED BACK FROM DAY SURGERY. R NEPRHOSTOMY IN PLACE AND PATIENT REPORTS 10/10 PAIN AND NAUSEA. FENTANYL AND ZOFRAN GIVEN TO TREAT. VSS, ON RA. AT BEDSIDE.
[2024-08-08] MEDS ORDERED: HYDROmorphone HCl/Pf 1MG SYR IV PRN (13:30)
[2024-08-08] MEDS ORDERED: Methocarbamol 500 MG Tab PO ONE (13:30)
--- NOTE | 2024-08-08 19:13 | NUR ---
PATIENT A/OX4, UP WITH SBA. R NEPHROSTOMY PLACED TODAY WITH BLOODY URINE OUTPUT. PATIENT VERY PAINFUL AND NAUSEOUS WHE SHE RETURNED FROM TUBE PLACEMENT. DILAUDID AND ZOFRAN USED TO TREAT. PATIENT NOW ON REGULAR DIET, TAKING IN VERY LITTLE. SKIN INTACT. VSS, ON 2LO2 TO MAINTAIN SATS> 90%. PATIENT COOPERATIVE WITH CARE AND ABLE TO MAKE NEEDS KNOWN.
[2024-08-08] MEDS ORDERED: CefTRIAXone Sodium 1,000 MG in NS 100 ML IV SCH (21:00)
[2024-08-08] MEDS ORDERED: Doxepin HCL 10 MG CAP PO SCH (21:00)
[2024-08-09 05:22] VITALS: BP 136/71
[2024-08-09 05:25] LABS: BASOPHILS ABSOLUTE AUTO 0.05 K/mm3 (0.00-0.23); BASOPHILS PERCENT AUTO 1 % (0-2); EOSINOPHILS ABSOLUTE AUTO 0.05 K/mm3 (0.00-0.68); EOSINOPHILS PERCENT AUTO 1 % (0-6); Hematocrit 33.5 % (33.0-51.0); IMMATURE GRAN ABSOLUTE AUTO 0.04 K/mm3 (0.00-0.10); IMMATURE GRAN PERCENT AUTO 0 % (0-1); LYMPHOCYTES ABSOLUTE AUTO 0.94 K/mm3 (0.84-5.20); LYMPHOCYTES PERCENT AUTO 10 % (21-46); MONOCYTES ABSOLUTE AUTO 0.87 K/mm3 (0.16-1.47); MONOCYTES PERCENT AUTO 10 % (4-13); Mean Corpuscular HGB Conc 32.8 g/dL (31.5-36.5); Mean Corpuscular Volume 97 fL (80-100); Mean Platelet Volume 9.8 fL (9.1-12.4); NEUTROPHILS ABSOLUTE AUTO 7.16 K/mm3 (1.96-9.15); NEUTROPHILS PERCENT AUTO 79 % (41-73); Platelet Count 274 K/mm3 (150-400); RDW Coefficient Variation 13.6 % (11.7-14.2); Red Blood Cell Count 3.44 M/mm3 (3.80-5.20); White Blood Cell Count 9.11 K/mm3 (4.00-11.30)
[2024-08-09] MEDS ORDERED: Omeprazole 20 MG CapCR PO SCH (06:00)
[2024-08-09 06:11] LABS: Albumin, Blood 3.1 g/dL (3.4-5.0); Anion Gap 12 mmol/L (3-11); Blood Urea Nitrogen 19 mg/dL (8-24); Bun/Creatinine Ratio 21.8 (12.0-20.0); CO2, Blood 25 mmol/L (21-32); Calcium, Blood 9.1 mg/dL (8.5-10.1); Chloride, Blood 106 mmol/L (98-108); Creatinine, Blood 0.87 mg/dL (0.40-1.00); Glomerular Filtration Rate 69 (60-); Glucose, Blood 106 mg/dL (70-99); Phosphorus, Blood 2.6 mg/dL (2.5-4.9); Potassium, Blood 3.7 mmol/L (3.5-5.5); Sodium, Blood 139 mmol/L (136-145)
--- NOTE | 2024-08-09 06:45 | NUR ---
Shift Summary Pt painful t/o the night but pain seems to be improving. She was able to sleep t/o most of the night and medicated x2 with 1mg of dilaudid vs 2mg yesterday. R nephrostomy output was red and bloody at the start of shift, this morning it is a dark tea color. VSS, pt on tele, no events. Pt had some nausea at the start of the shift, medicated x1 with Zofran and no other complaints of nausea.
[2024-08-09 08:25] VITALS: BP 130/63
[2024-08-09] MEDS ORDERED: Methocarbamol 500 MG Tab PO PRN (13:50)
[2024-08-09] MEDS ORDERED: OxyCODONE HCL 5 MG TAB PO PRN (13:50)
[2024-08-09 14:59] VITALS: BP 126/71
[2024-08-09] MEDS ORDERED: Acetaminophen 500 MG Tab PO SCH (18:00)
--- NOTE | 2024-08-09 18:49 | NUR ---
SHIFT SUMMARY PATIENT A/OX4, ABLE TO MAKE NEEDS KNOWN. PLEASANT AND COOPERATVIE. CONTINUES WITH Q4 NEURO CHECKS. OXYGEN REMOVED THIS AM, TOLERATING WELL CONTINUOUS PULSE OX IN PLACE. DILAUDID ADMINISTERED X3 THIS SHIFT AND PATIENT NOW WITH PO PAIN MEDICATIONS. ROXICODONE AND ROBAXIN ADMINISTERED THIS EVENING. NEW IV PLACED TO RIGHT WRIST. AT BEDSIDE INTERMITTENTLY THROUGHOUT THE DAY. NO OTHER CONCERNS AT THIS TIME.
[2024-08-09 19:30] VITALS: BP 129/66
[2024-08-09] MEDS ORDERED: NS 250 ML IV PRN (21:25)
[2024-08-10 03:09] VITALS: BP 133/68
[2024-08-10 06:22] LABS: BASOPHILS ABSOLUTE AUTO 0.04 K/mm3 (0.00-0.23); BASOPHILS PERCENT AUTO 1 % (0-2); EOSINOPHILS PERCENT AUTO 1 % (0-6); Hematocrit 32.3 % (33.0-51.0); Hemoglobin 10.8 g/dL (11.5-16.0); IMMATURE GRAN ABSOLUTE AUTO 0.06 K/mm3 (0.00-0.10); IMMATURE GRAN PERCENT AUTO 1 % (0-1); LYMPHOCYTES ABSOLUTE AUTO 1.09 K/mm3 (0.84-5.20); LYMPHOCYTES PERCENT AUTO 14 % (21-46); MONOCYTES ABSOLUTE AUTO 0.85 K/mm3 (0.16-1.47); MONOCYTES PERCENT AUTO 11 % (4-13); Mean Corpuscular HGB 32.3 pg (26.0-34.0); Mean Corpuscular HGB Conc 33.4 g/dL (31.5-36.5); Mean Corpuscular Volume 97 fL (80-100); NEUTROPHILS ABSOLUTE AUTO 5.65 K/mm3 (1.96-9.15); NEUTROPHILS PERCENT AUTO 73 % (41-73); Platelet Count 260 K/mm3 (150-400); RDW Coefficient Variation 13.2 % (11.7-14.2); RDW Standard Deviation 47.1 fL (35.1-46.3); Red Blood Cell Count 3.34 M/mm3 (3.80-5.20); White Blood Cell Count 7.79 K/mm3 (4.00-11.30)
[2024-08-10 06:54] LABS: Albumin, Blood 2.8 g/dL (3.4-5.0); Anion Gap 12 mmol/L (3-11); Blood Urea Nitrogen 16 mg/dL (8-24); Bun/Creatinine Ratio 17.8 (12.0-20.0); CO2, Blood 26 mmol/L (21-32); Calcium, Blood 8.7 mg/dL (8.5-10.1); Chloride, Blood 106 mmol/L (98-108); Glomerular Filtration Rate 66 (60-); Glucose, Blood 94 mg/dL (70-99); Phosphorus, Blood 2.6 mg/dL (2.5-4.9); Potassium, Blood 3.8 mmol/L (3.5-5.5); Sodium, Blood 140 mmol/L (136-145)
--- NOTE | 2024-08-10 07:02 | NUR ---
Shift Summary Pt still having moderate R flank pain, she was trying to not request IV pain meds but did need one dose last night. R nephrostomy output was yellow t/o the night and appeared as normal urine, improved from last night . She did have trouble sleeping because her R side was uncomfortable.
[2024-08-10 08:07] VITALS: BP 117/63
[2024-08-10] MEDS ORDERED: CIPR500 PO (10:21)
[2024-08-10] MEDS ORDERED: Methocarbamol500 MG PO (10:22)
[2024-08-10] MEDS ORDERED: OXYC5 PO (10:23)
[2024-08-10] MEDS ORDERED: ONDA4 PO (10:23)
--- NOTE | 2024-08-10 12:00 | NUR ---
DISCHARGE NOTE PATIENT A/OX4, ABLE TO MAKE NEEDS KNOWN. PLEASANT AND COOPERATIVE. EDUCATED REGARDING MEDICATIONS, FOLLOW UP APPOINTMENTS, AND NEPHROSTOMY CARE. AT BEDSIDE. PRESCRIPTIONS FAXED TO [employer] PER PATIENT REQUEST. PATIENT ASSISTED TO FAMILY VEHICLE VIA WHEELCAHIR BY [facility] STAFF. NO OTHER CONCERNS.
== END 2024-08-10 11:20 | disposition home or self-care (01) | DRG 872 ==
LOC: ER 15:27 → MEDS 23:09 → ERHOLD 23:09 → MEDS 08-08 00:48 → ENPENDDIS 08-10 10:44 → MEDS 08-10 11:20
PROVIDERS: Family Medicine; Student in an Organized Health Care Education/Training Program; ADMIT Internal Medicine
PROC: 0T9030Z Drainage of Right Kidney with Drainage Device, Percutaneous Approach (ICD-10-PCS; principal; 2024-08-08)
PROC: 3E03329 Introduction of Other Anti-infective into Peripheral Vein, Percutaneous Approach (ICD-10-PCS; 2024-08-08)
DX: A41.59 Other Gram-negative sepsis (principal); N13.6 Pyonephrosis; N17.9 Acute kidney failure, unspecified; M06.9 Rheumatoid arthritis, unspecified; E78.00 Pure hypercholesterolemia, unspecified; E03.9 Hypothyroidism, unspecified; K21.9 Gastro-esophageal reflux disease without esophagitis; Z88.2 Allergy status to sulfonamides; Z88.5 Allergy status to narcotic agent; Z79.899 Other long term (current) drug therapy; Z98.890 Other specified postprocedural states; Z79.890 Hormone replacement therapy
CPT/HCPCS: 36415; 50432; 74176; 76937; 80048; 80053; 80069; 81001; 83880; 85025; 87077; 87086; 87186; 96361; 96365; 99152; 99153; 99285-25; A9270; C1729; C1769; C1894; J0696; J1171; J2250; J2405; J3010; J7030; J7040; J7050; Q9967

== ENCOUNTER → 2024-08-07 | Outpatient (CLI) | payer MEDICARE, OTHER ==
[~2024-08-07] MED LIST changes: +C COMPLEX1000 M1 PO; +CIPR500 PO; +Methocarbamol500 MG PO; +ONDA4 PO
[2024-08-07 14:20] LABS: BASOPHILS ABSOLUTE AUTO 0.05 K/mm3 (0.00-0.23); BASOPHILS PERCENT AUTO 1 % (0-2); EOSINOPHILS ABSOLUTE AUTO 0.07 K/mm3 (0.00-0.68); EOSINOPHILS PERCENT AUTO 1 % (0-6); Hematocrit 36.7 % (33.0-51.0); Hemoglobin 12.6 g/dL (11.5-16.0); IMMATURE GRAN ABSOLUTE AUTO 0.04 K/mm3 (0.00-0.10); IMMATURE GRAN PERCENT AUTO 1 % (0-1); LYMPHOCYTES ABSOLUTE AUTO 1.48 K/mm3 (0.84-5.20); LYMPHOCYTES PERCENT AUTO 17 % (21-46); MONOCYTES ABSOLUTE AUTO 0.83 K/mm3 (0.16-1.47); MONOCYTES PERCENT AUTO 10 % (4-13); Mean Corpuscular HGB 31.8 pg (26.0-34.0); Mean Corpuscular HGB Conc 34.3 g/dL (31.5-36.5); Mean Corpuscular Volume 93 fL (80-100); NEUTROPHILS ABSOLUTE AUTO 6.25 K/mm3 (1.96-9.15); NEUTROPHILS PERCENT AUTO 72 % (41-73); Platelet Count 308 K/mm3 (150-400); RDW Coefficient Variation 13.2 % (11.7-14.2); RDW Standard Deviation 44.5 fL (35.1-46.3); Red Blood Cell Count 3.96 M/mm3 (3.80-5.20); White Blood Cell Count 8.72 K/mm3 (4.00-11.30)
[2024-08-07 14:39] LABS: Albumin, Blood 3.8 g/dL (3.4-5.0); Bilirubin, Total 0.5 mg/dL (0.1-1.0); Bun/Creatinine Ratio 18.1 (12.0-20.0); Calcium, Blood 10.1 mg/dL (8.5-10.1); Creatinine, Blood 1.99 mg/dL (0.40-1.00); Globulin, Blood 3.9 g/dL (2.2-4.0); Potassium, Blood 3.6 mmol/L (3.5-5.5); Thyroid Stimulating Hormone 1.613 uIU/mL (0.360-4.800); Total Protein, Blood 7.7 g/dL (6.4-8.2)
== END ==
LOC: LAB 14:16 → LAB SHORT 14:16
PROVIDERS: Physician Assistant
DX: R53.83 Other fatigue (principal)
CPT/HCPCS: 80053; 84443; 85025

== ENCOUNTER → 2024-09-03 | Outpatient (CLI) | payer MEDICARE, OTHER ==
[~2024-09-03] MED LIST changes: +C COMPLEX1000 M1 PO; +CIPR500 PO; +Methocarbamol500 MG PO; +ONDA4 PO
== END ==
LOC: LAB 17:36 → LAB SHORT 17:36
DX: R39.9 Unspecified symptoms and signs involving the genitourinary system (principal)
CPT/HCPCS: 87077; 87086; 87186

== ENCOUNTER → 2025-01-11 | Outpatient (CLI) | payer MEDICARE, OTHER | LOC: LAB SHORT 18:08 → LAB 18:08 | DX: N39.0 Urinary tract infection, site not specified (principal) | CPT/HCPCS: 87077; 87086; 87186 ==